=== PATIENT | male | born 1960 | race Caucasian/White ===

== ENCOUNTER 2018-01-13 00:03 | Inpatient (IN) | payer MEDICARE, MEDICAID ==
[2018-01-13] MEDS ORDERED: MOM 30ML SUSPENSION UDC PO (02:15)
[2018-01-13] MEDS ORDERED: traZODone 50 MG TAB PO (02:15)
[2018-01-13] MEDS ORDERED: MAALOX 30 ML SUSP *UDC PO (02:15)
[2018-01-13] MEDS: BENZTROPINE 2 MG TAB PO ×2 (15:52→20:51)
[2018-01-13] MEDS: PROPRANOLOL 10 MG TAB PO ×2 (15:53→20:51)
[2018-01-13] MEDS: PALIPERIDONE 3 MG ER TAB (INVEGA) PO (20:51)
[2018-01-14] MEDS: BENZTROPINE 2 MG TAB PO ×3 (09:31→20:58)
[2018-01-14] MEDS: PROPRANOLOL 10 MG TAB PO ×3 (09:31→20:59)
[2018-01-14] MEDS: PALIPERIDONE 3 MG ER TAB (INVEGA) PO (09:32)
[2018-01-14] MEDS: INFLUENZA QUADRIVALENT PF VACCINE 0.5ML SYRINGE (90686) IM (09:32)
[2018-01-14] MEDS: FLUoxetine 20 MG CAP PO (11:43)
[2018-01-14] MEDS: busPIRone 10 MG TAB PO ×2 (11:43→20:58)
[2018-01-14] MEDS: OLANZapine 10 MG TAB PO (14:15)
[2018-01-14] MEDS: LORazepam 2 MG TAB PO (14:15)
[2018-01-14] MEDS: DIVALPROEX 500MG *ER* TAB PO (20:59)
[2018-01-14] MEDS: traZODone 100 MG TAB PO (23:30)
[2018-01-14] MEDS: ACETAMINOPHEN TAB 650MG DOSE (2X325MG) PO (23:31)
[2018-01-15] MEDS: BENZTROPINE 2 MG TAB PO ×3 (09:06→21:45)
[2018-01-15] MEDS: busPIRone 10 MG TAB PO ×2 (09:06→21:44)
[2018-01-15] MEDS: FLUoxetine 20 MG CAP PO (09:06)
[2018-01-15] MEDS: PROPRANOLOL 10 MG TAB PO ×3 (09:07→21:44)
[2018-01-15] MEDS: NYSTATIN 500,000 U/5 ML SUSP UDC SS ×2 (16:42→21:45)
[2018-01-15] MEDS: DIVALPROEX 500MG *ER* TAB PO (21:45)
[2018-01-16] MEDS: NYSTATIN 500,000 U/5 ML SUSP UDC SS ×4 (08:45→22:50)
[2018-01-16] MEDS: busPIRone 10 MG TAB PO ×2 (08:45→22:51)
[2018-01-16] MEDS: FLUoxetine 20 MG CAP PO (08:45)
[2018-01-16] MEDS: PROPRANOLOL 10 MG TAB PO ×3 (08:45→22:51)
[2018-01-16] MEDS: BENZTROPINE 2 MG TAB PO ×3 (08:45→22:51)
[2018-01-16] MEDS: DIVALPROEX 500MG *ER* TAB PO (22:50)
[2018-01-17] MEDS: BENZTROPINE 2 MG TAB PO ×3 (08:45→22:16)
[2018-01-17] MEDS: busPIRone 10 MG TAB PO ×2 (08:45→22:15)
[2018-01-17] MEDS: FLUoxetine 20 MG CAP PO (08:46)
[2018-01-17] MEDS: NYSTATIN 500,000 U/5 ML SUSP UDC SS ×3 (08:46→21:00)
[2018-01-17] MEDS: PROPRANOLOL 10 MG TAB PO ×3 (08:52→22:15)
[2018-01-17 09:41] LABS: VALPROIC ACID (DEPAKOTE) 95.6 UG/ML (50.0-100.0)
[2018-01-17] MEDS ORDERED: fluPHENAZine DECAN 25MG/ML 5ML VIAL (J2680) IM (15:00)
[2018-01-17] MEDS: traZODone 100 MG TAB PO (22:16)
[2018-01-17] MEDS: DIVALPROEX 500MG *ER* TAB PO (22:16)
[2018-01-18] MEDS: busPIRone 10 MG TAB PO ×2 (08:37→21:22)
[2018-01-18] MEDS: BENZTROPINE 2 MG TAB PO ×3 (08:38→21:22)
[2018-01-18] MEDS: FLUoxetine 20 MG CAP PO (08:38)
[2018-01-18] MEDS: PROPRANOLOL 10 MG TAB PO ×3 (08:45→21:22)
[2018-01-18] MEDS: NYSTATIN 500,000 U/5 ML SUSP UDC SS ×3 (08:46→21:22)
[2018-01-18] MEDS: traZODone 100 MG TAB PO (21:21)
[2018-01-18] MEDS: DIVALPROEX 500MG *ER* TAB PO (21:22)
[2018-01-19] MEDS: PROPRANOLOL 10 MG TAB PO ×3 (10:09→21:02)
[2018-01-19] MEDS: BENZTROPINE 2 MG TAB PO ×3 (10:09→21:02)
[2018-01-19] MEDS: FLUoxetine 20 MG CAP PO (10:09)
[2018-01-19] MEDS: NYSTATIN 500,000 U/5 ML SUSP UDC SS ×3 (10:09→21:02)
[2018-01-19] MEDS: busPIRone 10 MG TAB PO ×2 (10:10→21:02)
[2018-01-19] MEDS: fluPHENAZine DECAN 25MG/ML 5ML VIAL (J2680) IM (15:56)
[2018-01-19] MEDS: DIVALPROEX 500MG *ER* TAB PO (21:01)
[2018-01-20] MEDS: busPIRone 10 MG TAB PO (08:29)
[2018-01-20] MEDS: BENZTROPINE 2 MG TAB PO (08:29)
[2018-01-20] MEDS: NYSTATIN 500,000 U/5 ML SUSP UDC SS (08:30)
[2018-01-20] MEDS: FLUoxetine 20 MG CAP PO (08:30)
[2018-01-20] MEDS: PROPRANOLOL 10 MG TAB PO (08:32)
== END 2018-01-20 12:25 | disposition home or self-care (01) | DRG 885 ==
LOC: M PSY 01-14 14:25 → M ED 00:03 → M ED INP 02:14 → M PSY 03:13
PROVIDERS: Psychiatry & Neurology Psychiatry
DX: F25.1 Schizoaffective disorder, depressive type (principal); G24.01 Drug induced subacute dyskinesia; Z79.899 Other long term (current) drug therapy; K21.9 Gastro-esophageal reflux disease without esophagitis